=== PATIENT | female | born 1995 | race Two or more races ===

== ENCOUNTER 2024-08-05 11:45 | Observation (INO) | payer BC, OTHER ==
[~2024-08-05] VITALS: Ht 162.6 cm; Wt 86.2 kg
[2024-08-05 13:31] LABS: Basophils # (auto) 0 10 ^3/uL (0-0.2); Basophils % (auto) 0.4 % (0.0-2.0); Eosinophils # (auto) 0.1 10 ^3/uL (0-0.8); Eosinophils % (auto) 0.8 % (0.0-7.0); Hematocrit 37.8 % (36.0-46.0); Hemoglobin 12.9 g/dL (12.2-16.2); Lymphocytes # (auto) 1.3 10 ^3/uL (0.4-5.4); Lymphocytes % (auto) 16.3 % (10.0-50.0); Mean Corpuscular Hemoglobin 29.2 pg (28.0-32.0); Mean Corpuscular Hgb Conc. 34.1 g/dL (32.0-36.0); Mean Corpuscular Volume 85.5 fL (80.0-100.0); Monocytes # (auto) 0.4 10 ^3/uL (0-1.3); Monocytes % (auto) 4.7 % (0.0-12.0); Neutrophils # (auto) 6.4 10 ^3/uL (1.6-8.6); Neutrophils % (auto) 77.8 % (37.0-80.0); Nucleated Red Blood Cells % 0.1 %; Platelet Count (auto) 135 10^3/uL (140-450); Red Blood Cells 4.42 10^6/uL (4.0-5.20); Red Cell Distribution Width 14.2 % (11.8-14.3); White Blood Cell 8.2 10^3/uL (4.4-10.8)
[2024-08-05 13:44] LABS: Alanine Aminotransferase 13 U/L (7-40); Albumin 3.5 g/dL (3.2-4.8); Alkaline Phosphatase 132 U/L (46-116); Anion Gap 9 (5-15); Aspartate Aminotransferase 21 U/L (13-40); BUN/Creatinine Ratio 9.7 (10.0-20.0); Bilirubin, Total 0.4 mg/dL (0.2-1.0); Blood Urea Nitrogen 6 mg/dL (9-23); Calcium 9.5 mg/dL (8.7-10.4); Carbon Dioxide 23 mmol/L (20-31); Chloride 105 mmol/L (98-107); Glucose 86 mg/dL (74-106); Potassium 3.6 mmol/L (3.5-5.1); Sodium 137 mmol/L (136-145); Total Protein 5.5 g/dL (5.7-8.2)
[2024-08-05 14:01] LABS: Uric Acid 3.8 mg/dL (3.1-7.8)
[2024-08-05 14:08] LABS: Urine Bacteria None Seen /hpf (None Seen)
[2024-08-05 14:45] LABS: Creatinine, Urine 42.82 mg/dL (30.0-125.0); Urine Protein/Creatinine Ratio 0.14
[2024-08-05 14:46] LABS: Protein, Urine < 6.0 mg/dL (1-14)
[2024-08-05 14:50] LABS: Urine Blood Negative /uL (Negative); Urine Clarity Clear (Clear); Urine Color Colorless (Yellow); Urine Protein, UAD Negative (Negative); Urine Specific Gravity 1.007 (1.001-1.035); Urine Urobilinogen Normal (Negative); Urine WBC 1 /hpf (0 - 5); Urine pH 6.5 (5.0-9.0)
--- NOTE | 2024-08-05 16:42 | DVHDS2 ---
Physician Discharge Progress N Final Diagnosis: IUP 38 wk, false labor Headache Operations or Procedures: Operations or Procedures NST reactive PIH labs NORMAL Headache improved w/ tylenol and maternal status reassuring Condition on Discharge: Stable Disposition: Home Discharge Instructions: Diet: Regular Activity: No Restrictions, As Tolerated Follow Up/Referral: PRN Medications: N/A Follow Up Care: Discharge Statement: "Patient was advised to return to the ER or call 911 if any headaches, dizziness, shortness of breath, chest pain, abdominal pain, bleeding, fevers, or worsening of medical condition. Patient was counseled about treatment plan, medications, possible side effects, patientverbalized understanding. All questions were answered to the best of my ability. This discharge took greater then 30 minutes in planning, reviewing documentation, counseling the patient, and discussing with other team members." OLIVE ABDI DO Aug 05, 2024 16:42
== END 2024-08-05 15:09 | disposition home or self-care (01) ==
LOC: LDRP 11:45
PROVIDERS: ADMIT Obstetrics & Gynecology; ATTEND Obstetrics & Gynecology
DX: O47.9 False labor, unspecified (principal); O26.893 Other specified pregnancy related conditions, third trimester; R51.9 Headache, unspecified; Z3A.38 38 weeks gestation of pregnancy; Z79.899 Other long term (current) drug therapy; Z98.890 Other specified postprocedural states
CPT/HCPCS: 36415; 59025; 80053; 81001; 81002; 82570; 84156; 84550; 85025; 94760; G0378

== ENCOUNTER 2024-08-13 05:09 | Observation (INO) | payer BC ==
[~2024-08-13] VITALS: Ht 162.6 cm; Wt 86.2 kg
--- NOTE | 2024-08-13 06:35 | DVHDS2 ---
Obstetrics Discharge Summary Obstetrics Discharge Summary Date of Admission: Aug 13, 2024 Date of Discharge: Aug 13, 2024 Reason For Admission: Observational/Evaluation Procedures: NST Discharge Diagnosis: Others (no labor detected stable for DC home ) Discharge Information: Activity (Unrestricted), Diet (Routine), Medications (None), Instructions (kick counts Srom and labor precautions), Discharge to (Home), Discarge date (06/13/2024) LYNDA CHRISTIANSON DO Aug 13, 2024 06:35
== END 2024-08-13 06:55 | disposition home or self-care (01) ==
LOC: LDRP 05:09
PROVIDERS: ADMIT Obstetrics & Gynecology; ATTEND Obstetrics & Gynecology
DX: O62.9 Abnormality of forces of labor, unspecified (principal); Z3A.39 39 weeks gestation of pregnancy; Z79.899 Other long term (current) drug therapy
CPT/HCPCS: 59025; 81002; 94760; G0378

== ENCOUNTER 2024-08-13 23:47 | Inpatient (IN) | payer BC ==
[~2024-08-13] VITALS: Ht 162.6 cm; Wt 88.5 kg
[2024-08-14] MEDS ORDERED: LIDOCAINE 2%HCL (LOCAL ANESTH.) INJ 20ML MDV IJ PRN (00:45)
[2024-08-14] MEDS ORDERED: NALBUPHINE HCL 10 MG/1ml INJECTION IM PRN (00:45)
[2024-08-14] MEDS ORDERED: NALBUPHINE HCL 10 MG/1ml INJECTION IV PRN (00:45)
[2024-08-14] MEDS ORDERED: BUTORPHANOL TARTRATE 2 MG/1 ML VIAL IV PRN ×2 (00:45)
[2024-08-14 01:38] LABS: Urine Bacteria None Seen /hpf (None Seen)
[2024-08-14 01:46] LABS: Basophils # (auto) 0 10 ^3/uL (0-0.2); Basophils % (auto) 0.4 % (0.0-2.0); Eosinophils # (auto) 0.1 10 ^3/uL (0-0.8); Eosinophils % (auto) 0.5 % (0.0-7.0); Hematocrit 39.4 % (36.0-46.0); Hemoglobin 13.6 g/dL (12.2-16.2); Lymphocytes # (auto) 1.8 10 ^3/uL (0.4-5.4); Lymphocytes % (auto) 16.3 % (10.0-50.0); Mean Corpuscular Hemoglobin 29.5 pg (28.0-32.0); Mean Corpuscular Hgb Conc. 34.6 g/dL (32.0-36.0); Mean Corpuscular Volume 85.4 fL (80.0-100.0); Monocytes # (auto) 0.6 10 ^3/uL (0-1.3); Monocytes % (auto) 5.6 % (0.0-12.0); Neutrophils # (auto) 8.3 10 ^3/uL (1.6-8.6); Neutrophils % (auto) 77.2 % (37.0-80.0); Nucleated Red Blood Cells % 0.1 %; Platelet Count (auto) 153 10^3/uL (140-450); Red Blood Cells 4.61 10^6/uL (4.0-5.20); Red Cell Distribution Width 14.1 % (11.8-14.3); White Blood Cell 10.8 10^3/uL (4.4-10.8)
[2024-08-14] MEDS ORDERED: ONDANSETRON HCL 4 MG/2 ML VIAL IV PRN (02:00)
[2024-08-14 02:03] LABS: INR 0.92 (0.9-1.15); Partial Thromboplastin Time 27.5 SEC (24.5-34.5); Prothrombin Time 9.8 sec (9.3-11.8)
[2024-08-14 02:09] LABS: Protein, Urine 9.3 mg/dL (1-14)
[2024-08-14] MEDS: LACTATED RINGER'S 1,000 ML IV SCH (02:10)
[2024-08-14 02:12] LABS: Creatinine, Urine 40.23 mg/dL (30.0-125.0); Urine Protein/Creatinine Ratio 0.23
[2024-08-14 02:14] LABS: Urine Blood Negative /uL (Negative); Urine Clarity Clear (Clear); Urine Color Colorless (Yellow); Urine Mucus FEW (None Seen); Urine Protein, UAD Negative (Negative); Urine Specific Gravity 1.008 (1.001-1.035); Urine Urobilinogen Normal (Negative); Urine WBC 1 /hpf (0 - 5); Urine pH 6.5 (5.0-9.0)
[2024-08-14 02:14] LABS: Alanine Aminotransferase 13 U/L (7-40); Anion Gap 9 (5-15); Aspartate Aminotransferase 20 U/L (13-40); BUN/Creatinine Ratio 11.5 (10.0-20.0); Carbon Dioxide 23 mmol/L (20-31); Chloride 104 mmol/L (98-107); Glucose 86 mg/dL (74-106); Potassium 3.7 mmol/L (3.5-5.1); Sodium 136 mmol/L (136-145); Uric Acid 3.9 mg/dL (3.1-7.8)
[2024-08-14 02:15] LABS: Albumin 4.2 g/dL (3.2-4.8); Bilirubin, Total 0.4 mg/dL (0.2-1.0); Total Protein 6.4 g/dL (5.7-8.2)
[2024-08-14] MEDS: LIDOCAINE HCL 2 %PF INJ 10ML AMP IJ ONE (02:15)
[2024-08-14] MEDS: NALOXONE HCL 0.4 MG/ML VIAL IV ONE (02:15)
[2024-08-14] MEDS: LACTATED RINGER'S 1,000 ML IV ONE (02:15)
[2024-08-14] MEDS: ePHEDrine SULFATE 50 MG/ML AMP IV ONE (02:15)
[2024-08-14 02:20] LABS: Alkaline Phosphatase 174 U/L (46-116); Blood Urea Nitrogen 7 mg/dL (9-23); Calcium 10.8 mg/dL (8.7-10.4)
[2024-08-14 02:20] LABS: Amphetamine Screen, Urine Neg (NEGATIVE); Barbiturate Scree,Urine Neg (NEGATIVE); Benzodiazephine Screen, Urine Neg (NEGATIVE); Cannabinoid Screen, Urine Neg (NEGATIVE); Cocaine Screen, Urine Neg (NEGATIVE); Opiate Scree,Urine Neg (NEGATIVE); Phencyclidine Screen, Urine Neg (NEGATIVE)
[2024-08-14] MEDS: ROPIVACAINE HCL 200 ML ONE (03:15)
--- NOTE | 2024-08-14 05:51 | DVHHP2 ---
OB CC & HPI Date Date of Admission: Aug 14, 2024 Patient Identification: : 1 Para: 0 EDC: Aug 17, 2024 EGA: 39.4 Chief Complaints: Reason for admission: active labor History of Present Complaints 29y G1po Presented in Active labor, 7cm dilated now. BP's initially elevated likely due to pain. Denies any signs of symptoms of Pre Eclampsia GBS neg Past Medical History Cardiac: No pertinent Hx Pulmonary: No pertinent Hx Central Nervous System: No pertinent Hx GI: No pertinent Hx Hemotology/Oncology: No pertinent Hx Hepatobiliary: No pertinent Hx Psychiatric: No pertinent Hx Musculoskeletal: No pertinent Hx Rheumotologic: No pertinent Hx Infectious Disease: No peritnent Hx ENT: No pertinent Hx Renal/: No pertinent Hx Endocrine: No pertinent Hx Dermatology: No pertinent Hx Past Surgical History: No pertinent Hx OB History OB History Care: Good Care Ultrasounds: Normal mid trimester US Obstetrical Complications: None Medical Complications: None Other Concerns: Excessive maternal weight gain Allergies: Coded Allergies: Aspirin (Verified Allergy, Mild, Fever and hives, 08/05/24) Gluten Meal (Verified Allergy, Unknown, 08/14/24) Kiwi Extract (Verified Allergy, Unknown, 08/14/24) Home Meds No Active Prescriptions or Reported Meds Current Medications Current Medications Medications (Trade) Dose Ordered Sig/Smith Route PRN Reason Start Time Stop Time Status Last Admin Lactated Ringer's 1,000 ml @ 125 mls/hr Q8H IV 08/14/24 00:45 08/14/24 02:10 Nalbuphine HCl (Nubain) 10 mg Q4HP PRN IM MODERATE PAIN (4-6 PAIN SCALE) 08/14/24 00:45 Nalbuphine HCl (Nubain) 10 mg Q4HP PRN IV MODERATE PAIN (4-6 PAIN SCALE) 08/14/24 00:45 Witch Trupti (Tucks) 1 pad PRN PRN TOP PERINEAL AREA DISCOMFORT 08/14/24 00:45 Sodium Lauryl Sulfate (Phisoderm) 240 ml PRN PRN TOP PERINEAL AREA DISCOMFORT 08/14/24 00:45 Benzocaine (Dermoplast) 1 applic PRN PRN TOP PERINEAL AREA DISCOMFORT 08/14/24 00:45 Butorphanol Tartrate (Stadol Injection) 1 mg Q4HPRN PRN IV MODERATE PAIN (4-6 PAIN SCALE) 08/14/24 00:45 Butorphanol Tartrate (Stadol Injection) 2 mg Q4HPRN PRN IV SEVERE PAIN (7-10 PAIN SCALE) 08/14/24 00:45 Lidocaine HCl (Xylocaine) 20 ml ONCE PRN IJ PERINEAL AREA DISCOMFORT 08/14/24 00:45 Ondansetron HCl (Zofran) 4 mg Q4HPRN PRN IV NAUSEA / VOMITING 08/14/24 02:00 Family & Social History Family/Social History Blood Type: O+ Rubella: immune RPR/VDRL: Negative GBS Status: Negative HBsAG: Negative Review of Systems Constitutional: No symptom reported Ears, Nose, & Throat: No symptom reported Eyes: No symptom reported Pulmonary/Respiratory: No symptom reported Cardiovascular: No symptom reported Gastrointestinal: No symptom reported Genitourinary: No symptom reported Musculoskeletal: No symptom reported Skin: No symptom reported Psychiatric: No symptom reported Endocrine: No symptom reported Hemotologic/Lymphatic: No symptom reported OB Admission Exam Physical Exam HEENT: TMs Normal, Fontanelles Normal, Nasal Mucosa Normal, Eyes non-injected, Oropharynx Normal, PERRLA, Moist Membranes, EOMI Heart: Rhythm Normal Lungs: Clear Abdomen: Non tender Extremities: Normal Reflexes: Normal Cervical Dilatation: 7cm Effacement: 75% Station: -2 Membranes: Intact Heart Rate: 120's Accelerations: Accelerations Present Decelerations: Variable Decelerations Short Term Variability: Present Prison Variability: Average (6-25) Contractions on Admission: < 5 Minutes Apart Intensity: Moderate OB Plan Plan Admitting Diagnosis: 29y G1Po IUP 39.4 wk, ACTIVE Labor GBS neg Categ II tracing (intermittent variable decels w/ moderate variability) Plan: Expectant Management Other Plan: Admit for labor and delivery Anticipated Informed consent obtained PIH labs all negative. Epidural given. Care endorsed to oncoming OB team, OLIVE Lyon DO Aug 14, 2024 05:51
--- NOTE | 2024-08-14 06:09 | DVHPN2 ---
OB Labor Progress Note Date and Time Seen Date Seen: Aug 14, 2024 Time Seen: 06:10 Subjective Patient reports: No new complaints, Feels better Objective Vital Signs Afeb BP stable Monitoring Method Monitoring Method: External Heart Rate Heart Rate Baseline: 120 Heart Rate Variability: Moderate Presence of FHR Accelerations: Yes Presence of FHR Decelerations: Yes Heart Rate Type of Decel: Variable Decelerations Contractions Contractions Intensity: Moderate Contractions Resting Tone: Relaxed Membranes Membranes: Intact Vaginal Exam Vag Exam Deferred: No Vaginal Exam Dilation: 9 Vaginal Exam Effacement: 100 Vaginal Exam Station: 0 Vaginal Exam Presentation: VTX Vaginal Exam Show: None Medications Medication - Epidural: Yes Lab Results Lab Results Current Medications Medications (Trade) Dose Ordered Sig/Smith Start Time Stop Time Status Last Admin Dose Admin Lactated Ringer's 1,000 ml @ 125 mls/hr Q8H 08/14/24 00:45 08/14/24 02:10 125 MLS/HR Nalbuphine HCl (Nubain) 10 mg Q4HP PRN 08/14/24 00:45 Nalbuphine HCl (Nubain) 10 mg Q4HP PRN 08/14/24 00:45 Witch Trupti (Tucks) 1 pad PRN PRN 08/14/24 00:45 Sodium Lauryl Sulfate (Phisoderm) 240 ml PRN PRN 08/14/24 00:45 Benzocaine (Dermoplast) 1 applic PRN PRN 08/14/24 00:45 Butorphanol Tartrate (Stadol Injection) 1 mg Q4HPRN PRN 08/14/24 00:45 Butorphanol Tartrate (Stadol Injection) 2 mg Q4HPRN PRN 08/14/24 00:45 Lidocaine HCl (Xylocaine) 20 ml ONCE PRN 08/14/24 00:45 Ondansetron HCl (Zofran) 4 mg Q4HPRN PRN 08/14/24 02:00 Naloxone HCl (Narcan) 0.2 mg PRN ONCE 08/14/24 02:15 08/14/24 02:18 DC Ephedrine Sulfate (ePHEDrine SULFATE) 10 mg PRN ONCE 08/14/24 02:15 08/14/24 02:18 DC Lidocaine HCl (Xylocaine-Pf 2% Injection) 10 ml ONCE ONCE 08/14/24 02:15 08/14/24 02:18 DC Lactated Ringer's 1,000 ml @ 1,000 mls/hr Q1H ONCE 08/14/24 02:15 08/14/24 03:14 DC Ropivacaine (Naropin) 10 mg T@N ONCE 08/14/24 03:14 08/14/24 03:19 DC Oxytocin 500 ml @ 999 mls/hr Q31M ONCE 08/14/24 03:30 08/14/24 04:00 DC Oxytocin 500 ml @ 125 mls/hr Q4H ONCE 08/14/24 04:00 08/14/24 07:59 Laboratory Tests Test 08/14/24 01:18 08/14/24 01:16 Range/Units White Blood Count 10.8 4.4-10.8 10^3/uL Red Blood Count 4.61 4.0-5.20 10^6/uL Hemoglobin 13.6 12.2-16.2 g/dL Hematocrit 39.4 36.0-46.0 % Mean Corpuscular Volume 85.4 80.0-100.0 fL Mean Corpuscular Hemoglobin 29.5 28.0-32.0 pg Mean Corpuscular Hemoglobin Concent 34.6 32.0-36.0 g/dL Red Cell Distribution Width 14.1 11.8-14.3 % Platelet Count 153 140-450 10^3/uL Mean Platelet Volume 10.5 6.9-10.8 fL Neutrophils (%) (Auto) 77.2 37.0-80.0 % Lymphocytes (%) (Auto) 16.3 10.0-50.0 % Monocytes (%) (Auto) 5.6 0.0-12.0 % Eosinophils (%) (Auto) 0.5 0.0-7.0 % Basophils (%) (Auto) 0.4 0.0-2.0 % Neutrophils # (Auto) 8.3 1.6-8.6 10 ^3/uL Lymphocytes # (Auto) 1.8 0.4-5.4 10 ^3/uL Monocytes # (Auto) 0.6 0-1.3 10 ^3/uL Eosinophils # (Auto) 0.1 0-0.8 10 ^3/uL Basophils # (Auto) 0 0-0.2 10 ^3/uL Nucleated Red Blood Cells 0.1 % Prothrombin Time 9.8 9.3-11.8 sec Prothrombin Time INR 0.92 0.9-1.15 Activated Partial Thromboplast Time 27.5 24.5-34.5 SEC Sodium Level 136 136-145 mmol/L Potassium Level 3.7 3.5-5.1 mmol/L Chloride Level 104 98-107 mmol/L Carbon Dioxide Level 23 20-31 mmol/L Anion Gap 9 5-15 Blood Urea Nitrogen 7 L 9-23 mg/dL Creatinine 0.61 0.550-1.02 mg/dL Glomerular Filtration Rate Calc 125 >90 mL/min BUN/Creatinine Ratio 11.5 10.0-20.0 Serum Glucose 86 74-106 mg/dL Uric Acid 3.9 3.1-7.8 mg/dL Calcium Level 10.8 H 8.7-10.4 mg/dL Total Bilirubin 0.4 0.2-1.0 mg/dL Aspartate Amino Transferase (AST) 20 13-40 U/L Alanine Aminotransferase (ALT) 13 7-40 U/L Alkaline Phosphatase 174 H 46-116 U/L Total Protein 6.4 5.7-8.2 g/dL Albumin 4.2 3.2-4.8 g/dL Rapid Plasma Reagin Pending Treponema pallidum Ab (TP-PA) Pending Hepatitis B Surface Antigen Negative Negative Hepatitis C Antibody Negative Negative HIV (1&2) Antibody Negative Negative Urine Color Colorless Yellow Urine Clarity Clear Clear Urine pH 6.5 5.0-9.0 Urine Specific [place] 1.008 1.001-1.035 Urine Protein Negative Negative Urine Ketones Trace Negative Urine Blood Negative Negative /uL Urine Nitrite Negative Negative Urine Bilirubin Negative Negative Urine Urobilinogen Normal Negative mg/dL Urine Leukocyte Esterase Negative Negative /uL Urine RBC <1 0 - 4 /hpf Urine WBC 1 0 - 5 /hpf Urine Squamous Epithelial Cells Few <5 /hpf Urine Bacteria None seen None Seen /hpf Urine Mucus Few None Seen Urine Creatinine 40.23 30.0-125.0 mg/dL Urine Protein/Creatinine Ratio 0.23 Urine Glucose Normal Normal mg/dL Urine Total Protein 9.3 1-14 mg/dL Urine Opiates Screen Neg NEGATIVE Urine Fentanyl Screen Neg NEGATIVE Urine Barbiturates Screen Neg NEGATIVE Urine Phencyclidine Screen Neg NEGATIVE Urine Amphetamines Screen Neg NEGATIVE Urine Benzodiazepines Screen Neg NEGATIVE Urine Cocaine Screen Neg NEGATIVE Urine Cannabinoids Screen Neg NEGATIVE Assessment Assessment Term IUP in labor GBS neg Plan Plan Anticipated Plan discussed with: Patient OLIVE ABDI DO Aug 14, 2024 06:09
[2024-08-14] MEDS: LACT. RINGERS/OXYTOCIN 20UNITS 500 ML IV ONE ×4 (07:15→09:26)
[2024-08-14] MEDS ORDERED: TERBUTALINE SULFATE 1 MG/ML 1ML VIAL SC PRN (07:15)
--- NOTE | 2024-08-14 07:24 | DVHPN2 ---
Chief Complaints Patient reports: No new complaints, Feels better Nursing reports: No new complaints Objective Medications Current Medications Medications (Trade) Dose Ordered Sig/Smith Route PRN Reason Start Time Stop Time Status Last Admin Benzocaine (Dermoplast) 1 applic PRN PRN TOP PERINEAL AREA DISCOMFORT 08/14/24 00:45 Butorphanol Tartrate (Stadol Injection) 1 mg Q4HPRN PRN IV MODERATE PAIN (4-6 PAIN SCALE) 08/14/24 00:45 Butorphanol Tartrate (Stadol Injection) 2 mg Q4HPRN PRN IV SEVERE PAIN (7-10 PAIN SCALE) 08/14/24 00:45 Lactated Ringer's 1,000 ml @ 125 mls/hr Q8H IV 08/14/24 00:45 08/14/24 02:10 Lidocaine HCl (Xylocaine) 20 ml ONCE PRN IJ PERINEAL AREA DISCOMFORT 08/14/24 00:45 Nalbuphine HCl (Nubain) 10 mg Q4HP PRN IM MODERATE PAIN (4-6 PAIN SCALE) 08/14/24 00:45 Nalbuphine HCl (Nubain) 10 mg Q4HP PRN IV MODERATE PAIN (4-6 PAIN SCALE) 08/14/24 00:45 Ondansetron HCl (Zofran) 4 mg Q4HPRN PRN IV NAUSEA / VOMITING 08/14/24 02:00 Oxytocin 1,000 ml @ 6 ml/hr Q24H IV 08/14/24 07:15 Sodium Lauryl Sulfate (Phisoderm) 240 ml PRN PRN TOP PERINEAL AREA DISCOMFORT 08/14/24 00:45 Terbutaline Sulfate (Brethine Inj) 0.25 mg ONCE PRN SC Uterine tachysystole 08/14/24 07:15 Witrobyn Trupti (Tucks) 1 pad PRN PRN TOP PERINEAL AREA DISCOMFORT 08/14/24 00:45 Others ve-10cm/90/+1 Studies Laboratory Tests 08/14/24 01:18 Test 08/14/24 01:18 Range/Units Serum Glucose 86 74-106 mg/dL Ass/Plan Assessment active labor Plan start BLAINE Valadez DO Aug 14, 2024 07:24
[2024-08-14] MEDS: DERMOPLAST 60ML BOTTLE TOP PRN (09:13)
[2024-08-14] MEDS: METHYLERGONOVINE MALEATE 0.2 MG/ML AMP IM ONE (09:13)
[2024-08-14] MEDS: PHISODERM TOP SOLN 240ML BTL TOP PRN (09:13)
[2024-08-14] MEDS: WITCH HAZEL-GLYCERIN PAD TOP PRN (09:13)
--- NOTE | 2024-08-14 09:18 | LDN2 ---
Labor and Delivery Note Date 08/14/24 Age 29 1 Para 1 EDC 12- EGA 39wks Diagnosis labor Vaginal Delivery: VTX Vacuum Assisted: No Placenta: Spontaneous Sex: Male Apgars 9-9 Nuchal Cord Transected: Yes Amniotic Fluid: Clear Anesthesia epidural Episiotomy: No Extension: Yes (2nd deg perineal lac) Repaired with 2-0 chromic EBL 300ml Labs Laboratory Tests 08/14/24 01:18: Hepatitis B Surface Antigen Negative, HIV (1&2) Antibody Negative Blood Bank 08/14/24 01:18: Blood Type O POSITIVE Complications none Conditions stable Comments/Significant Med Amara spec exam no cxal lac BLAINE FAN DO Aug 14, 2024 09:18
[2024-08-14] MEDS: LACT. RINGERS/OXYTOCIN 20UNITS 1,000 ML IV SCH (09:26)
[2024-08-14] MEDS ORDERED: ONDANSETRON ODT 4 MG TAB PO PRN (09:30)
[2024-08-14] MEDS: IBUPROFEN 600 MG TAB PO PRN (14:10)
[2024-08-14 15:30] VITALS: BP 140/92; PULSE 72; RESP 18; TEMP 97.9; O2SAT 97
[2024-08-14] MEDS: ROPIVACAINE HCL 400mg/200ml BAG (2mg/ml) EPI ONE (16:46)
[2024-08-14 19:00] VITALS: BP 131/76; PULSE 62; RESP 18; TEMP 98.1; O2SAT 97
[2024-08-14] MEDS: DOCUSATE SOD 100 MG CAP PO SCH (21:59)
[2024-08-14] MEDS: ACETAMINOPHEN 325 MG TAB PO PRN (22:08)
[2024-08-14 22:30] VITALS: BP 131/59; PULSE 57; RESP 18; TEMP 97.7; O2SAT 100
[2024-08-15 03:00] VITALS: BP 120/63; PULSE 59; RESP 18; TEMP 98.2; O2SAT 97
[2024-08-15 05:06] LABS: RPR Non Reactive (Non Reactive)
[2024-08-15 07:00] VITALS: BP 134/78; PULSE 65; RESP 18; TEMP 97.9; O2SAT 98
--- NOTE | 2024-08-15 07:42 | DVHPN2 ---
Chief Complaints Patient reports: No new complaints, Feels better Nursing reports: No new complaints Objective Vitals Vital Signs Date Time Temp Pulse Resp B/P (MAP) Pulse Ox O2 Delivery O2 Flow Rate FiO2 08/15/24 03:00 98.2 59 18 120/63 (82) 97 98.2 08/14/24 19:00 Room Air Medications Current Medications Medications (Trade) Dose Ordered Sig/Smith Route PRN Reason Start Time Stop Time Status Last Admin Acetaminophen (Tylenol Tablet) 650 mg Q4HP PRN PO MILD PAIN (1-3 PAIN SCALE) 08/14/24 09:30 08/14/24 22:08 Docusate Sodium (Colace Capsule) 200 mg HS PO 08/14/24 22:00 08/14/24 21:59 Ibuprofen (Motrin Tablet) 600 mg Q6HP PRN PO MODERATE PAIN (4-6 PAIN SCALE) 08/14/24 09:30 08/14/24 14:10 Ondansetron HCl (Zofran Po) 4 mg Q4HPRN PRN PO NAUSEA / VOMITING 08/14/24 09:30 General: Normal Neck: No thyromegaly Cardiovascular: Normal Abdominal: Soft Extremities: Normal Studies Laboratory Tests 08/14/24 01:18 Test 08/14/24 01:18 Range/Units Serum Glucose 86 74-106 mg/dL Ass/Plan Assessment s/p Plan dc [place] fu in 2wmo BLAINE FAN Aug 15, 2024 07:42
--- NOTE | 2024-08-15 07:43 | DVHDS2 ---
Obstetrics Discharge Summary Obstetrics Discharge Summary Date of Admission: Aug 13, 2024 Date of Discharge: Aug 15, 2024 Reason For Admission: Onset of Labor Procedures: NST Intrapartum Procedures: Spontaneous vaginal deliv Procedures: None Operative Complicat: Laceration (Perineal) Discharge Diagnosis: Term -Delivered Discharge Information: Activity (Other), Diet (Routine), Medications (Name:), Instructions, Discharge to (Home), Discarge date (08-15) BLAINE FAN DO Aug 15, 2024 07:43
[2024-08-15 11:10] VITALS: BP 136/67; PULSE 60; RESP 14; TEMP 98.2; O2SAT 97
== END 2024-08-15 12:03 | disposition home or self-care (01) | DRG 807 ==
LOC: LDRP 23:47 → OBSVTOIN 08-14 00:41 → LDRP 08-14 02:52
PROVIDERS: ADMIT Obstetrics & Gynecology; ATTEND Obstetrics & Gynecology
PROC: 10E0XZZ Delivery of Products of Conception, External Approach (ICD-10-PCS; principal; 2024-08-14)
PROC: 0KQM0ZZ Repair Perineum Muscle, Open Approach (ICD-10-PCS; 2024-08-14)
PROC: 3E0R3BZ Introduction of Anesthetic Agent into Spinal Canal, Percutaneous Approach (ICD-10-PCS; 2024-08-14)
PROC: 00HU33Z Insertion of Infusion Device into Spinal Canal, Percutaneous Approach (ICD-10-PCS; 2024-08-14)
DX: O76 Abnormality in fetal heart rate and rhythm complicating labor and delivery (principal); Z37.0 Single live birth; O69.81X0 Labor and delivery complicated by cord around neck, without compression, not applicable or unspecified; O70.1 Second degree perineal laceration during delivery; Z3A.39 39 weeks gestation of pregnancy; Z88.6 Allergy status to analgesic agent
CPT/HCPCS: 36415; 59025; 59409; 62282; 80053; 80307; 81001; 81002; 82570; 84156; 84550; 85025; 85610; 85730; 86592; 86703; 86780; 86803; 86850; 86900; 86901; 87340; 94760; 96372; G0378; J2590